=== PATIENT | male | born 1985 | race African-American/Black ===

== ENCOUNTER 2021-07-15 08:47 | Emergency (ER) | payer MEDICARE, MEDICAID ==
[~2021-07-15] VITALS: Ht 185.4 cm; Wt 88.0 kg
[2021-07-15] MEDS ORDERED: ACETAMINOPHEN 325MG TABLET PO STA (11:29)
[2021-07-15] MEDS ORDERED: SODIUM CHLORIDE 0.9% 1,000 ML IV ONE (11:30)
[2021-07-15 11:36] LABS: BASOPHILS % 0.9 % (0.0-2.0); EOSINOPHILS % 13.7 % (0.0-5.0); HEMATOCRIT. 34.7 % (42.0-52.0); LYMPHOCYTES % 23.6 % (20.0-50.0); MEAN CORPUSCULAR HEMOGLOBIN 21.9 pg (28.0-32.0); MEAN CORPUSCULAR VOLUME 68.8 fL (80.0-94.0); MEAN PLATELET VOLUME 7.7 fl (7.4-10.4); MONOCYTES % 12.3 % (2.0-8.0); NEUTROPHILS % 49.5 % (40.0-76.0); PLATELET 298 x1000/uL (130-400); RED BLOOD CELL COUNT 5.05 mill/uL (4.7-6.1); RED CELL DISTRIBUTION WIDTH 15.9 % (11.6-14.6)
[2021-07-15 11:41] LABS: CHLORIDE 108 mEq/L (98-107)
[2021-07-15 11:50] LABS: ETHANOL BLOOD < 10 mg/dL
[2021-07-15 12:17] LABS: PLATELET ESTIMATE NORMAL
[2021-07-15] MEDS ORDERED: POTASSIUM CHLORIDE 20MEQ TABLET SR PO NR (12:30)
[2021-07-16 08:47] LABS: *BARBITURATES SCREEN URINE NEGATIVE (NEGATIVE); *COCAINE SCREEN URINE NEGATIVE (NEGATIVE); CANNABINOID URINE SCREEN NEGATIVE (NEGATIVE); CLARITY URINE CLEAR (CLEAR); COLOR URINE YELLOW (YELLOW); KETONES URINE NEGATIVE (NEGATIVE); LEUKOCYTE ESTERASE URINE NEGATIVE (NEGATIVE); METHADONE URINE SCREEN NEGATIVE (NEGATIVE); NITRITE URINE NEGATIVE (NEGATIVE); OCCULT BLOOD URINE NEGATIVE (NEGATIVE); OPIATES URINE SCREEN NEGATIVE (NEGATIVE); PHENCYCLIDINE URINE SCREEN NEGATIVE (NEGATIVE); PROTEIN URINE NEGATIVE (NEGATIVE); SPECIFIC GRAVITY URINE 1.026 (1.005-1.030)
[2021-07-16 08:48] LABS: *AMPHETAMINES SCREEN URINE NEGATIVE (NEGATIVE); *BENZODIAZEPINES SCREEN URINE NEGATIVE (NEGATIVE)
[2021-07-16] MEDS ORDERED: OLANZAPINE 10MG TABLET PO SCH (21:00)
[2021-07-16 22:55] VITALS: BP 120/82
== END 2021-07-16 22:59 | disposition short-term general hospital (02) ==
LOC: EDBD 08:47 → ER 08:47
DX: F29 Unspecified psychosis not due to a substance or known physiological condition (principal); E87.6 Hypokalemia; D50.9 Iron deficiency anemia, unspecified; Z20.822 Contact with and (suspected) exposure to COVID-19
CPT/HCPCS: 36415; 70450; 71045; 72170; 80053; 80320; 84484; 85025; 96360; 96361; 99285; C9803; J7030; U0003; U0005; G0480

== ENCOUNTER 2021-12-06 23:09 | Emergency (ER) | payer MEDICARE, MEDICAID ==
[~2021-12-06] VITALS: Ht 177.8 cm; Wt 68.0 kg
[2021-12-06 23:11] VITALS: BP 147/91
[2021-12-06] MEDS ORDERED: IBUP-2029 PO (23:37)
[2021-12-06] MEDS ORDERED: BO1 TP (23:37)
[2021-12-07] MEDS ORDERED: BACITRACIN ZINC OINT UDPKT TOP ONE (01:00)
== END 2021-12-07 00:50 | disposition home or self-care (01) ==
LOC: ER 23:09
DX: S20.352A Superficial foreign body of left front wall of thorax, initial encounter (principal); X58.XXXA Exposure to other specified factors, initial encounter; Y93.89 Activity, other specified; Y92.89 Other specified places as the place of occurrence of the external cause; Y99.8 Other external cause status
CPT/HCPCS: 99282